=== PATIENT | female | born 1985 | race Caucasian/White ===

== ENCOUNTER 2019-07-25 12:34 | Emergency (ER) | payer OTHER ==
[~2019-07-25] VITALS: Ht 162.6 cm; Wt 45.4 kg
[~2019-07-25 12:34] MED LIST: AMOX500 PO; Augmentin 875-1 EACH PO; CORRECTOL; Cleocin HCl150 MG PO; DOC250 PO; ERYT.5TO BOTHEYES; Flonase 0.05% N16 GM; HYDACE10B PO; Keflex500 MG PO; MULVITMINE PO; Mucinex600 MG PO; NAPR500 PO; NAPR550 PO; Norco 10-325 T1 EACH PO; Norco 5-325 Ta1 EACH PO; OXYACE5T PO; PROM25 PO; RXPHEN200 PO; STOMUL; SULTRIDS PO; Zofran Odt4 MG SL; Zofran4 MG PO
[2019-07-25] MEDS ORDERED: KETO10 PO (14:51)
== END 2019-07-25 15:04 | disposition home or self-care (01) ==
LOC: ER 12:34
DX: T14.8XXA Other injury of unspecified body region, initial encounter (principal); M25.512 Pain in left shoulder; R07.81 Pleurodynia; W18.30XA Fall on same level, unspecified, initial encounter; Z88.1 Allergy status to other antibiotic agents; Z88.8 Allergy status to other drugs, medicaments and biological substances; F17.210 Nicotine dependence, cigarettes, uncomplicated
CPT/HCPCS: 71046; 72100; 73030; 99283-25

== ENCOUNTER 2019-11-12 11:38 | Emergency (ER) | payer OTHER ==
[~2019-11-12] VITALS: Ht 162.6 cm; Wt 40.8 kg
[~2019-11-12 11:38] MED LIST changes: +KETO10 PO
[2019-11-12 12:27] LABS: BASOPHILS ABSOLUTE AUTO 0.07 K/mm3 (0.00-0.23); BASOPHILS PERCENT AUTO 0 % (0-2); EOSINOPHILS PERCENT AUTO 0 % (0-6); Hematocrit 43.2 % (33.0-51.0); Hemoglobin 14.9 g/dL (11.5-16.0); IMMATURE GRAN ABSOLUTE AUTO 0.17 K/mm3 (0.00-0.10); IMMATURE GRAN PERCENT AUTO 1 % (0-1); LYMPHOCYTES ABSOLUTE AUTO 1.26 K/mm3 (0.84-5.20); LYMPHOCYTES PERCENT AUTO 5 % (21-46); MONOCYTES ABSOLUTE AUTO 3.62 K/mm3 (0.16-1.47); MONOCYTES PERCENT AUTO 14 % (4-13); Mean Corpuscular HGB 30.2 pg (26.0-34.0); Mean Corpuscular HGB Conc 34.5 g/dL (31.5-36.5); Mean Corpuscular Volume 87 fL (80-100); NEUTROPHILS ABSOLUTE AUTO 21.64 K/mm3 (1.96-9.15); NEUTROPHILS PERCENT AUTO 81 % (41-73); Platelet Count 217 K/mm3 (150-400); RDW Coefficient Variation 12.4 % (11.7-14.2); RDW Standard Deviation 39.5 fL (35.1-46.3); Red Blood Cell Count 4.94 M/mm3 (3.80-5.20); White Blood Cell Count 26.76 K/mm3 (4.00-11.30)
[2019-11-12 13:08] LABS: Alanine Aminotransfer (ALT/SGP 22 U/L (12-78); Albumin, Blood 3.6 g/dL (3.4-5.0); Albumin/Globulin Ratio 0.8 (0.8-1.8); Alk Phos 82 U/L (50-136); Anion Gap 13 mmol/L (6-16); Aspartate Aminotrans (AST/SGOT 16 U/L (12-37); Bilirubin, Total 0.7 mg/dL (0.1-1.0); Blood Urea Nitrogen 8 mg/dL (8-24); Bun/Creatinine Ratio 12.7 (12.0-20.0); CO2, Blood 21 mmol/L (21-32); Calcium, Blood 8.9 mg/dL (8.5-10.1); Chloride, Blood 104 mmol/L (98-108); Creatinine, Blood 0.63 mg/dL (0.40-1.00); Globulin, Blood 4.5 g/dL (2.2-4.0); Glomerular Filtration Rate >60 (60-); Glucose, Blood 101 mg/dL (70-99); Potassium, Blood 2.9 mmol/L (3.5-5.5); Sodium, Blood 138 mmol/L (136-145); Total Protein, Blood 8.1 g/dL (6.4-8.2)
[2019-11-12 13:32] LABS: Influenza A Negative (NEGATIVE); Influenza B Negative (NEGATIVE)
[2019-11-12 16:20] LABS: Source, Urine Clean Catch
[2019-11-12 16:41] LABS: Appearance, Urine Hazy (Clear); Bilirubin, Urine Neg (Neg); Blood, Urine 2+ (Neg); Color, Urine Yellow (P-Yellow); Glucose Qualitative, Urine Neg (Neg); Ketones, Urine 2+ (Neg); Leukocyte Esterase, Urine 3+ (Neg); Nitrite, Urine Pos (Neg); Protein, Urine 3+ (Neg); Urobilinogen, Urine 2+ (Normal)
[2019-11-12 16:50] LABS: Bacteria Many /hpf; Squamous Epithelial Cells Many /hpf (Few)
[2019-11-12 16:51] LABS: Mucus Light (0-Heavy)
[2019-11-12] MEDS ORDERED: Keflex500 MG PO (17:29)
[2019-11-12] MEDS ORDERED: BENZ100A PO (17:29)
[2019-11-12] MEDS ORDERED: ONDA4ODT MM (17:29)
== END 2019-11-12 17:47 | disposition home or self-care (01) ==
LOC: ER 11:38
PROVIDERS: Emergency Medicine
DX: J06.9 Acute upper respiratory infection, unspecified (principal); N39.0 Urinary tract infection, site not specified; E86.0 Dehydration; E87.6 Hypokalemia; F17.210 Nicotine dependence, cigarettes, uncomplicated
CPT/HCPCS: 36415; 71045; 80053; 81001; 83690; 85025; 86308; 87077; 87086; 87186; 87804; 96361; 96374; 96375; 99283-25; J0696; J1885; J2405; J3480; J7030

== ENCOUNTER → 2021-09-12 | Outpatient (CLI) | payer OTHER ==
[~2021-09-12] MED LIST changes: +BENZ100A PO; +ONDA4ODT MM
[2021-09-13 08:11] LABS: HBSAG SCREEN Negative (Negative); HEP A AB, IGM Negative (Negative); HEP B CORE AB, IGM Negative (Negative); HEP C VIRUS AB 0.3 (0.0-0.9)
[2021-09-13 09:11] LABS: HIV AB/P24 AG SCREEN Non Reactive (Non Reactive)
[2021-09-13 11:59] LABS: Candida species (DNA Probe) Negative (NEGATIVE); G. vaginalis (DNA Probe) Positive (NEGATIVE); T. vaginalis (DNA Probe) Negative (NEGATIVE)
== END | disposition home or self-care (01) ==
LOC: LAB SHORT 11:31
PROVIDERS: Physician Assistant
DX: Z20.9 Contact with and (suspected) exposure to unspecified communicable disease (principal)
CPT/HCPCS: 80074; 86592; 87389; 87480; 87510; 87660